=== PATIENT | male | born 2000 | race Native Hawaiian/Other Pacific Islander ===

== ENCOUNTER 2021-03-22 16:55 | Emergency (ER) | payer OTHER ==
[~2021-03-22] VITALS: Ht 170.2 cm; Wt 56.7 kg
[2021-03-22 16:59] VITALS: BP 119/65; TEMP 98.4
== END 2021-03-22 18:03 | disposition home or self-care (01) ==
LOC: ED 16:55
DX: S83.8X2A Sprain of other specified parts of left knee, initial encounter (principal)
CPT/HCPCS: 96372; 99283; J1885